=== PATIENT | male | born 1995 | race Caucasian/White ===

== ENCOUNTER 2018-04-13 09:55 | Emergency (ER) | payer OTHER ==
[2018-04-13] MEDS ORDERED: Ibuprofen 800 MG TAB ONE (10:19)
[2018-04-13] MEDS ORDERED: Acetaminophen 500 MG TAB ONE (10:19)
== END 2018-04-13 10:25 | disposition home or self-care (01) ==
LOC: MADERS 09:55
DX: S86.911A Strain of unspecified muscle(s) and tendon(s) at lower leg level, right leg, initial encounter (principal); F17.220 Nicotine dependence, chewing tobacco, uncomplicated; X50.0XXA Overexertion from strenuous movement or load, initial encounter; Y99.0 Civilian activity done for income or pay
CPT/HCPCS: 99283